=== PATIENT | male | born 1975 | race African-American/Black ===

== ENCOUNTER 2016-10-02 07:23 | Inpatient (IN) | payer SELFPAY | END 2016-10-08 06:20 | disposition E | DRG 25 | DX: J96.00 Acute respiratory failure, unspecified whether with hypoxia or hypercapnia; T68.XXXA Hypothermia, initial encounter; E23.2 Diabetes insipidus; S02.82XA Fracture of other specified skull and facial bones, left side, initial encounter for closed fracture; Y09 Assault by unspecified means; X31.XXXA Exposure to excessive natural cold, initial encounter; F10.20 Alcohol dependence, uncomplicated; I95.81 Postprocedural hypotension; I10 Essential (primary) hypertension; F17.200 Nicotine dependence, unspecified, uncomplicated; E83.42 Hypomagnesemia; E83.39 Other disorders of phosphorus metabolism; D64.9 Anemia, unspecified; D69.6 Thrombocytopenia, unspecified ==